=== PATIENT | male | born 1960 | race Caucasian/White ===

== ENCOUNTER 2022-12-12 07:31 | Outpatient (OUT) | payer BC, SELFPAY ==
[2022-12-12 08:07] LABS: Basophils Absolute Auto 0.1 10^3/uL (0.0-0.1); Eosinophils Absolute Auto 0.2 10^3/uL (0.0-0.7); Eosinophils Percent Auto 2.1 % (0.9-7.0); Hematocrit 45.9 % (42.0-54.0); Hemoglobin 15.1 g/dL (14.0-18.0); Immature Granulocytes Abs Auto 0.03 10^3/uL (0.00-0.03); Immature Granulocytes Pct Auto 0.4 % (0.0-0.5); Lymphocytes Absolute Auto 2.7 10^3/uL (1.2-3.8); Lymphocytes Percent Auto 33.7 % (20.5-60.0); Mean Corpuscular HGB Conc 32.9 g/dL (29.9-35.2); Mean Corpuscular Hemoglobin 30.6 pg (25.9-34.0); Mean Corpuscular Volume 93.1 fL (80.0-94.0); Mean Platelet Volume 8.9 fL (9.5-13.5); Monocytes Absolute Auto 0.6 10^3/uL (0.3-0.8); Monocytes Percent Auto 6.8 % (1.7-12.0); Neutrophils Absolute Auto 4.6 10^3/uL (1.4-6.5); Platelet Count 254 10^3/uL (150-450); Red Blood Count 4.93 10^6/uL (4.70-6.10); Red Cell Distribution Width 14.2 % (11.0-15.0); White Blood Count 8.1 10^3/uL (4.0-11.0)
[2022-12-12 08:31] LABS: Estimated Average Glucose 114 mg/dL; Glycohemoglobin A1C 5.6 % (4.5-6.2)
[2022-12-12 08:46] LABS: Alanine Aminotransferase 27 U/L (16-63); Albumin Globulin Ratio 1.1; Albumin Level 4.1 g/dL (3.4-5.0); Alkaline Phosphatase 50 U/L (46-116); Anion Gap 9.9; Aspartate Amino Transferase 15 U/L (15-37); BUN Creatinine Ratio 15.3; Bilirubin Direct 0.1 mg/dL (0.0-0.2); Bilirubin Total 0.4 mg/dL (0.2-1.0); Calcium 9.4 mg/dL (8.5-10.1); Carbon Dioxide 29.3 mmol/L (21.0-32.0); Chloride 105 mmol/L (98-107); Chol HDL Ratio 2.3; Cholesterol 197 mg/dL (<=200); Estimated GFR (African America >60 (>=60); Estimated GFR (Non-African Ame >60 (>=60); Globulin 3.6 g/dL; Glucose 110 mg/dL (74-106); HDL Cholesterol 87 mg/dL (40-60); Potassium 5.2 mmol/L (3.5-5.1); Sodium 139 mmol/L (136-145); Thyroid Stimulating Hormone 1.366 uIU/mL (0.358-3.740); Total Protein 7.7 g/dL (6.4-8.2); Triglycerides 51 mg/dL (<=150); VLDL CHOLESTEROL 10.2 mg/dL
[2022-12-12 09:53] LABS: Prostate Specific Antigen Scrn 1.48 ng/mL (<=4.00)
== END 2022-12-12 07:32 | disposition home or self-care (01) ==
LOC: LAB 07:35
PROVIDERS: PCP Family Medicine; Visit Provider Family Medicine
DX: Z00.00 Encounter for general adult medical examination without abnormal findings (principal); Z12.5 Encounter for screening for malignant neoplasm of prostate
CPT/HCPCS: 36415; 80048; 80061; 80076; 83036; 84443; 85025; G0103

== ENCOUNTER 2023-12-27 09:24 | Outpatient (OUT) | payer BC, SELFPAY ==
[2023-12-27 10:00] LABS: Basophils Absolute Auto 0.1 10^3/uL (0.0-0.1); Basophils Percent Auto 0.8 % (0.2-2.0); Eosinophils Absolute Auto 0.1 10^3/uL (0.0-0.7); Eosinophils Percent Auto 1.4 % (0.9-7.0); Hematocrit 45.5 % (42.0-54.0); Hemoglobin 14.9 g/dL (14.0-18.0); Immature Granulocytes Abs Auto 0.02 10^3/uL (0.00-0.03); Immature Granulocytes Pct Auto 0.3 % (0.0-0.5); Lymphocytes Absolute Auto 2.4 10^3/uL (1.2-3.8); Lymphocytes Percent Auto 31.3 % (20.5-60.0); Mean Corpuscular HGB Conc 32.7 g/dL (29.9-35.2); Mean Corpuscular Hemoglobin 31.4 pg (25.9-34.0); Mean Platelet Volume 9.2 fL (9.5-13.5); Monocytes Absolute Auto 0.6 10^3/uL (0.3-0.8); Monocytes Percent Auto 7.6 % (1.7-12.0); Neutrophils Absolute Auto 4.5 10^3/uL (1.4-6.5); Neutrophils Percent Auto 58.6 % (43.0-75.0); Platelet Count 248 10^3/uL (150-450); Red Blood Count 4.74 10^6/uL (4.70-6.10); Red Cell Distribution Width 14.2 % (11.0-15.0); White Blood Count 7.7 10^3/uL (4.0-11.0)
[2023-12-27 10:57] LABS: Alanine Aminotransferase 28 U/L (16-63); Albumin Globulin Ratio 1.3; Albumin Level 3.9 g/dL (3.4-5.0); Alkaline Phosphatase 53 U/L (46-116); Anion Gap 10.3; Aspartate Amino Transferase 16 U/L (15-37); BUN Creatinine Ratio 13.6; Bilirubin Direct 0.2 mg/dL (0.0-0.2); Bilirubin Total 0.7 mg/dL (0.2-1.0); Calcium 9.1 mg/dL (8.5-10.1); Carbon Dioxide 28.8 mmol/L (21.0-32.0); Chloride 104 mmol/L (98-107); Chol HDL Ratio 2.3; Cholesterol 201 mg/dL (<=200); Estimated GFR (African America >60 (>=60); Estimated GFR (Non-African Ame >60 (>=60); Glucose 96 mg/dL (74-106); HDL Cholesterol 87 mg/dL (40-60); Potassium 4.1 mmol/L (3.5-5.1); Sodium 139 mmol/L (136-145); Thyroid Stimulating Hormone 1.044 uIU/mL (0.358-3.740); Total Protein 6.9 g/dL (6.4-8.2); Triglycerides 50 mg/dL (<=150)
[2023-12-27 11:24] LABS: Estimated Average Glucose 105 mg/dL; Glycohemoglobin A1C 5.3 % (4.5-6.2)
== END 2023-12-27 09:25 | disposition home or self-care (01) ==
LOC: LAB 09:25
PROVIDERS: PCP Family Medicine; Visit Provider Family Medicine
DX: Z00.00 Encounter for general adult medical examination without abnormal findings (principal)
CPT/HCPCS: 36415; 80048; 80061; 80076; 83036; 84443; 85025; G0103

== ENCOUNTER 2024-12-18 10:13 | Outpatient (OUT) | payer BC, SELFPAY ==
--- OUTSIDE RECORDS SUMMARY | 2024-12-18 10:29 | XMS_ITS | CCD ---
Author Organization [facility] Care Team Providers Care Pole Tester Name Role Phone FARHEEN Friedman Attending Provider PENG, DR ADAM Rodriguez Attending Unavailable PENG, DR ADAM Rodriguez Admitting Unavailable PENG, DR ADAM Rodriguez Primary Care Unavailable PENG, DR ADAM Rodriguez Consulting Unavailable PENG, DR ADAM Rodriguez Admitting Unavailable PENG, DR ADAM Rodriguez Primary Care Unavailable PENG, DR ADAM Rodriguez Consulting Unavailable PENG, DR ADAM Rodriguez Attending Unavailable Sarah Mahajan Unavailable Lenora Mcclendon Unavailable ADAM KHOURY Attending Unavailable Sofia Jang NP Unavailable [phone] Adam Khoury MD Primary Care Provider [phone] Medications Current Medications Medication Drug Class(es) Dates Sig (Normalized) Sig (Original) [id number] actuat albuterol 0.09 mg/actuat metered dose inhaler (1 source) beta2-Adrenergic Agonist Start: 03-29-2023 take 1 puff(s) by inhalation every four hours as needed Albuterol Sulfate HFA 108 (90 Base) MCG/ACT 1 puff as needed Inhalation every 4 hrs for 30 days Mar, Active azithromycin 250 mg oral tablet (1 source) Macrolide Antimicrobial Start: 03-29-2023 Azithromycin 250 MG Take 2 tablets on first day then 1 tablet daily for 4 days Orally as directed for 5 Mar, Active methylPREDNISolone 4 mg oral tablet (1 source) Corticosteroid Start: 03-29-2023 Medrol 4 MG as directed Orally as directed for 6 days Mar, Active Completed/Discontinued Medications Medication Drug Class(es) Dates Sig (Normalized) Sig (Original) dexamethasone 1 mg/ml / neomycin 3.5 mg/ml / polymyxin b [id number] unt/ml ophthalmic suspension (2 sources) Aminoglycoside Antibacterial, Polymyxin-class Antibacterial, Corticosteroid Start: 11-22-2022 take 1 drop(s) into the eye(s) four times daily as needed Neomycin-Polymyx in-Dexameth [id number] 1 drop into affected eye Ophthalmic Four times a day for 5 days Nov, Not-Taking/PRN Ketorolac (6 sources) Nonsteroidal Anti-inflammatory Drug, Cyclooxygenase Inhibitor Start: 09-03-2017 Toradol per 15 mg Sep, 30 mg Start: 01-18-2016 Toradol per 15 mg Jan, 60 mg triamcinolone acetonide 40 mg/ml injectable suspension (5 sources) Corticosteroid Start: 11-22-2022 Kenalog-40 Nov, 60 mg Start: 09-03-2017 KENALOG - 10 m g Sep, 40 mg Problems Active Problems Problem Classification Problem Date Documented Date Episodic/Chronic Acute bronchitis (1 source) Acute bronchitis, unspecified Episodic Diverticulosis and diverticulitis (4 sources) Diverticular disease of colon; Translations: [Diverticulosis of large intestine without perforation or abscess without bleeding] Onset: 12-13-2023 12-13-2023 Chronic Other eye disorders (1 source) Other specified disorders of eye and adnexa Episodic Other screening for suspected conditions (not mental disorders or infectious disease) (1 source) Encounter for screening for malignant neoplasm of prostate; Translations: [ENC SCREEN MALIG NEOPLASM PROSTATE] Onset: 12-31-2021 Episodic Spondylosis; intervertebral disc disorders; other back problems (4 sources) Degeneration of lumbar intervertebral disc; Translations: [Other intervertebral disc degeneration, lumbar region] Onset: 12-13-2023 12-13-2023 Chronic Unclassified (3 sources) CONTACT W/AND (SUSP) EXPOS COVID-19; Translations: [CONTACT W/AND (SUSP) EXPOS COVID-19] Onset: 04-06-2021 Past or Other Problems Problem Classification Problem Date Documented Da te Episodic/Chronic Other non-traumatic joint disorders (1 source) Pain in right knee Onset: 10-20-2021 Resolved: 10-20-2021 Episodic Other non-traumatic joint disorders (1 source) Effusion, right knee Onset: 10-20-2021 Resolved: 10-20-2021 Episodic Other non-traumatic joint disorders (4 sources) Pain in right shoulder; Translations: [Pain in joint, shoulder region] Onset: 12-13-2023 12-13-2023 Episodic Spondylosis; intervertebral disc disorders; other back problems (10 sources) Acute back pain with sciatica; Translations: [Lumbago with sciatica, right side] Onset: 12-13-2023 12-13-2023 Episodic Unclassified (1 source) CONTACT W/AND (SUSP) EXPOS COVID-19; Translations: [CONTACT W/AND (SUSP) EXPOS COVID-19] Onset: 03-30-2021 Unclassified (1 source) Contact with and (suspected) exposure to covid-19 Z20.822 Results Test Name Value Interpretation Reference Range Facility ALL CBC WITH AUTO DIFFon BASOPHILS ABSOLUTE AUTO 0.1 [facility] Basophils/100 WBC (Bld) 0.8 % 0.2 - 2.0 % [facility] Eosinophils/100 WBC (Bld) 1.4 % 0.9 - 7.0 % [facility] Erythrocyte distribution width (RBC) [Ratio] 14.2 % 11.0 - 15.0 % [facility] Hematocrit (Bld) [Volume fraction] 45.5 % 42.0 - 54.0 % [facility] Hem[facility] (Bld) [Mass/Vol] 14.9 g/dL 14.0 - 18.0 g/dL [facility] IMMATURE GRANULOCYTES ABS AUTO 0.02 [facility] Immature granulocytes/100 WBC (Bld) 0.3 % 0.0 - 0.5 % [facility] Interpretation and review of laboratory results Abnormal [facility] LYMPHOCYTES ABSOLUTE AUTO 2.4 [facility] Lymphocytes/100 WBC (Bld) 31.3 % 20.5 - 60.0 % [facility] MCH (RBC) [Entitic mass] 31.4 pg 25.9 - 34.0 pg [facility] MCHC (RBC) [Mass/Vol] 32.7 g/dL 29.9 - 35.2 g/dL [facility] MCV (RBC) [Entitic vol] 96.0 fL High 80.0 - 94.0 fL [facility] MONOCYTES ABSOLUTE AUTO 0.6 [facility] Monocytes/100 WBC (Bld) 7.6 % 1.7 - 12.0 % [facility] NEUTROPHILS ABSOLUTE AUTO 4.5 [facility] Neutrophils/100 WBC (Bld) 58.6 % 43.0 - 75.0 % [facility] Platelet mean volume (Bld) [Entitic vol] 9.2 fL Low 9.5 - 13.5 fL [facility] EO # 0.1 [facility] PLT 248 [facility] RBC 4.74 [facility] WBC 7.7 [facility] COVID + FLU Quick Testingon 03-29-2023 SARS-CoV-2 (COVID-19) RNA HERLINDA+probe Ql (Unsp spec) Negative [facility] Search to Phone Other COVID + FLU Quick Testing Negative [employer] Other CBC AUTO DIFFon 12-29-2021 BASO # 0.1 103/ul Normal 0.0-0.1 [facility] Comment on above: Performed By: #### C BC #### [facility] [address] [place] [address] Dr. Wisam Oconnell Basophils/100 WBC (Bld) 0.7 % Normal 0.2-2.0 [facility] Comment on above: Performed By: #### C BC #### [facility] [address] [place] [address] Dr. Wisam Oconnell EO # 0.2 103/ul Normal 0.0-0.7 [facility] Comment on above: Performed By: #### C BC #### [facility] [address] [place] [address] Dr. Wisam Oconnell Eosinophils/100 WBC (Bld) 2.1 % Normal 0.9-7.0 [facility] Comment on above: Performed By: #### C BC #### [facility] [address] [place] [address] Dr. Wisam Oconnell Erythrocyte distribution width (RBC) [Ratio] 14.6 % Normal 11.0-15.0 [facility] Comment on above: Performed By: #### C BC #### [facility] [address] [place] [address] Dr. Wisam Oconnell Hematocrit (Bld) [Volume fraction] 46.9 % Normal 42.0-54.0 [facility] Comment on above: Performed By: #### C BC #### [facility] [address] [place] [address] Dr. Wisam Oconnell Hemoglobin (Bld) [Mass/Vol] 15.1 g/dL Normal 14.0-18.0 [facility] Comment on above: Performed By: #### C BC #### [facility] [address] [place] [address] Dr. Wisam Oconnell IG # 0.05 10e3/ul Critically high 0.00-0.03 [facility] Comment on above: Performed By: #### C BC #### [facility] [address] [place] [address] Dr. Wisam Oconnell IG % 0.5 % Normal 0.0-0.5 [facility] Comment on above: Performed By: #### C BC #### [facility] [address] [place] [address] Dr. Wisam Oconnell LYMPH # 2.7 103/ul Normal 1.2-3.8 [facility] Comment on above: Performed By: #### C BC #### [facility] [address] [place] [address] Dr. Wisam Oconnell Lymphocytes/100 WBC (Bld) 25.3 % Normal 20.5-60.0 [facility] Comment on above: Performed By: #### C BC #### [facility] [address] [place] [address] Dr. Wisam Oconnell MANUAL DIFF REQ NO Normal [facility] Comment on above: Performed By: #### C BC #### [facility] [address] [place] [address] Dr. Wisam Oconnell MCH (RBC) [Entitic mass] 30.9 pg Normal 25.9-34.0 [facility] Comment on above: Performed By: #### C BC #### [facility] [address] [place] [address] Dr. Wisam Oconnell MCHC (RBC) [Mass/Vol] 32.2 g/dL Normal 29.9-35.2 [facility] Comment on above: Performed By: #### C BC #### [facility] [address] [place] [address] Dr. Wisam Oconnell MCV (RBC) [Entitic vol] 95.9 fL Critically high 80.0-94.0 [facility] Comment on above: Performed By: #### C BC #### [facility] [address] [place] [address] Dr. Wisam Oconnell MONO # 0.6 103/ul Normal 0.3-0.8 [facility] Comment on above: Performed By: #### C BC #### [facility] [address] [place] [address] Dr. Wisam Oconnell Monocytes/100 WBC (Bld) 5.9 % Normal 1.7-12.0 [facility] Comment on above: Performed By: #### C BC #### [facility] [address] [place] [address] Dr. Wisam Oconnell NEUT # 7.0 103/ul Critically high 1.4-6.5 [facility] Comment on above: Performed By: #### C BC #### [facility] [address] [place] [address] Dr. Wisam Oconnell Neutrophils/100 WBC (Bld) 65.5 % Normal 43.0-75.0 [facility] Comment on above: Performed By: #### C BC #### [facility] [address] [place] [address] Dr. Wisam Oconnell Platelet mean volume (Bld) [Entitic vol] 9.4 fL Critically low 9.5-13.5 [facility] Comment on above: Performed By: #### C BC #### [facility] [address] [place] [address] Dr. Wisam Oconnell PLT 297 103/ul Normal 150-450 [facility] Comment on above: Performed By: #### C BC #### [facility] [address] [place] [address] Dr. Wisam Oconnell RBC 4.89 106/ul Normal 4.70-6.10 [facility] Comment on above: Performed By: #### C BC #### [facility] [address] [address] [address] Wisam Oconnell WBC 10.7 103/ul Normal 4.0-11.0 [facility] Comment on above: Performed By: #### C BC #### [facility] [address] [address] [address] Wisam Oconnell GLYCOHEMOGLOBIN A1Con 2021 ADA RECOMMENDATION SEE BELOW Normal [facility] Comment on above: Result Comment: ADA RECOMMENDED LIMIT 4.0 - 6.0 ADA THERAPEUTIC TARGET < 7.0 ACTION SUGGESTED > 7.0 Performed By: #### A 1C #### [facility] [address] [place] [address] Dr. Wisam Oconnell Glucose [Mass/Vol] 117 mg/dL Normal [facility] Comment on above: Performed By: #### A 1C #### [facility] [address] [place] [address] Dr. Wisam Oconnell HbA1c (Bld) [Mass fraction] 5.7 % Normal 4.5-6.2 [facility] Comment on above: Performed By: #### A 1C #### [facility] [address] [place] [address] Dr. Wisam Oconnell LIPID PROFILEon 12-29-2021 CHOL-HDL RATIO NORM SEE BELOW Normal [facility] Comment on above: Result Comment: 3.3 - 4.4 LOW RISK 4.4 - 7.1 AVERAGE RISK 7.1 - 11.0 MODERATE RISK >11.0 HIGH RISK Performed By: #### L IPID, LIVER, TSH, BMP #### [facility] [address] [address] [address] Wisam Oconnell Cholesterol [Mass/Vol] 231 mg/dL Critically high <=200 [facility] Comment on above: Performed By: #### L IPID, LIVER, TSH, BMP #### [facility] [address] [address] [address] Wisam Oconnell Cholesterol in HDL [Mass/Vol] 84 mg/dL Critically high 40-60 [facility] Comment on above: Performed By: #### L IPID, LIVER, TSH, BMP #### [facility] [address] [address] [address] Wisam Oconnell Cholesterol in LDL [Mass/Vol] 135.0 mg/dL Normal [facility] Comment on above: Performed By: #### L IPID, LIVER, TSH, BMP #### [facility] [address] [address] [address] Wisam Oconnell Cholesterol.total/Ch olesterol in HDL [Mass ratio] 2.8 {ratio} Normal [facility] Comment on above: Performed By: #### L IPID, LIVER, TSH, BMP #### [facility] [address] [address] [address] Wisam Oconnell HDL NORMAL > or = 60 mg/dl - LOW CARDIOVASCULAR RISK <40 mg/dl - HIGH CARDIOVASCULAR RISK Normal [facility] Comment on above: Performed By: #### L IPID, LIVER, TSH, BMP #### [facility] [address] [address] [address] Wisam Oconnell LDL CALC NORMAL SEE BELOW Normal [facility] Comment on above: Result Comment: <100 mg/dl OPTIMAL 100 - 129 mg/dl NEAR OR ABOVE OPTIMAL 130 - 159 mg/dl BORDERLINE HIGH 160 - 189 mg/dl HIGH >190 mg/dl VERY HIGH Performed By: #### L IPID, LIVER, TSH, BMP #### [facility] [address] [address] [address] Wisam Oconnell Triglyceride [Mass/Vol] 60 mg/dL Normal <=150 [facility] Comment on above: Performed By: #### L IPID, LIVER, TSH, BMP #### [facility] [address] [address] [address] Wisam Oconnell VLDL CALC 12.0 mg/dL Normal [facility] Comment on above: Performed By: #### L IPID, LIVER, TSH, BMP #### [facility] [address] [address] [address] Wisam Oconnell LIVER PROFILEon 12-29-2021 Albumin [Mass/Vol] 4.1 g/dL Normal 3.4-5.0 [facility] Comment on above: Performed By: #### L IPID, LIVER, TSH, BMP #### [facility] [address] [place] [address] Dr. Wisam Oconnell Albumin/Globulin [Mass ratio] 1.3 {ratio} Normal [facility] Comment on above: Performed By: #### L IPID, LIVER, TSH, BMP #### [facility] [address] [place] [address] Dr. Wisam Oconnell ALP [Catalytic activity/Vol] 54 U/L Normal 46-116 [facility] Comment on above: Performed By: #### L IPID, LIVER, TSH, BMP #### [facility] [address] [place] [address] Dr. Wisam Oconnell ALT [Catalytic activity/Vol] 29 U/L Normal 16-63 [facility] Comment on above: Performed By: #### L IPID, LIVER, TSH, BMP #### [facility] [address] [place] [address] Dr. Wisam Oconnell AST [Catalytic activity/Vol] 17 U/L Normal 15-37 [facility] Comment on above: Performed By: #### L IPID, LIVER, TSH, BMP #### [facility] [address] [place] [address] Dr. Wisam Oconnell BILI, CONJUGATED 0.1 mg/dL Normal 0.0-0.2 [facility] Comment on above: Performed By: #### L IPID, LIVER, TSH, BMP #### [facility] [address] [place] [address] Dr. Wisam Oconnell Bilirubin [Mass/Vol] 0.4 mg/dL Normal 0.2-1.0 [facility] Comment on above: Performed By: #### L IPID, LIVER, TSH, BMP #### [facility] [address] [place] [address] Dr. Wisam Oconnell Globulin (S) [Mass/Vol] 3.2 g/dL Normal [facility] Comment on above: Performed By: #### L IPID, LIVER, TSH, BMP #### [facility] [address] [place] [address] Dr. Wisam Oconnell Protein [Mass/Vol] 7.3 g/dL Normal 6.4-8.2 [facility] Comment on above: Performed By: #### L IPID, LIVER, TSH, BMP #### [facility] [address] [address] [address] Wisam Oconnell PROF CHEM 8 (BAS METB)on Anion gap [Moles/Vol] 12.3 mmol/L Normal [facility] Comment on above: Performed By: #### L IPID, LIVER, TSH, BMP #### [facility] [address] [address] [address] Wisam Oconnell Calcium [Mass/Vol] 9.0 mg/dL Normal 8.5-10.1 [facility] Comment on above: Performed By: #### L IPID, LIVER, TSH, BMP #### [facility] [address] [place] [address] Dr. Wisam Oconnell Chloride [Moles/Vol] 105 mmol/L Normal 98-107 [facility] Comment on above: Performed By: #### L IPID, LIVER, TSH, BMP #### [facility] [address] [place] [address] Dr. Wisam Oconnell CO2 [Moles/Vol] 27.6 mmol/L Normal 21.0-32.0 [facility] Comment on above: Performed By: #### L IPID, LIVER, TSH, BMP #### [facility] [address] [place] [address] Dr. Wisam Oconnell Creatinine [Mass/Vol] 1.17 mg/dL Normal 0.70-1.30 [facility] Comment on above: Performed By: #### L IPID, LIVER, TSH, BMP #### [facility] [address] [place] [address] Dr. Wisam Oconnell EGFR-AF [place] >60 Normal >=60 [facility] Comment on above: Performed By: #### L IPID, LIVER, TSH, BMP #### [facility] [address] [place] [address] Dr. Wisam Oconnell EGFR-NON AF [place] >60 Normal >=60 [facility] Comment on above: Performed By: #### L IPID, LIVER, TSH, BMP #### [facility] [address] [address] [address] Wisam Oconnell Glucose [Mass/Vol] 96 mg/dL Normal 74-106 [facility] Comment on above: Performed By: #### L IPID, LIVER, TSH, BMP #### [facility] [address] [address] [address] Wisam Oconnell Potassium [Moles/Vol] 4.9 mmol/L Normal 3.5-5.1 [facility] Comment on above: Performed By: #### L IPID, LIVER, TSH, BMP #### [facility] [address] [address] [address] Wisam Oconnell Sodium [Moles/Vol] 140 mmol/L Normal 136-145 [facility] Comment on above: Performed By: #### L IPID, LIVER, TSH, BMP #### [facility] [address] [address] [address] Wisam Oconnell Urea nitrogen [Mass/Vol] 19.0 mg/dL Critically high 7.0-18.0 [facility] Comment on above: Performed By: #### L IPID, LIVER, TSH, BMP #### [facility] [address] [address] [address] Wisam Oconnell Urea nitrogen/Creatinine [Mass ratio] 16.2 mg/mg Normal [facility] Comment on above: Performed By: #### L IPID, LIVER, TSH, BMP #### [facility] [address] [address] [address] Wisam Oconnell TSHon 12-29-2021 TSH 2.262 uIU/mL Normal 0.358-3.740 [facility] Comment on above: Performed By: #### L IPID, LIVER, TSH, BMP #### [facility] [address] [address] [address] Wisam Oconnell MRI Knee w/o Righton 022 MRI Knee w/o Right HISTORY: Medial and lateral pain COMPARISON: None available TECHNIQUE: Multiplanar multisequence MRI of the right knee was performed without contrast. FINDINGS: Quadriceps and patellar tendons are intact. No joint effusion. The anterior cruciate ligament and posterior cruciate ligament are intact. The medial collateral ligament, lateral collateral ligament, and popliteus myotendinous unit are intact. Complex tear of the body through posterior horn of the medial meniscus including flap tear component of the body with small meniscus flap displaced inferiorly along the periphery of the medial tibial plateau. Bone marrow edema within the medial tibial plateau subjacent to the body of the medial meniscus is likely reactive. The lateral meniscus is intact. There are a few tiny partial-thickness cartilage defect of the weightbearing medial femoral condyle as well as a few fully describe the fissures with small foci of subcortical bone marrow edema. Popliteal fossa structures are intact. No Frazier's cyst. IMPRESSION: Complex tear of the body through posterior horn of the medial meniscus. Report reported and signed by David Fang on 12/17/2021 1418 Normal [facility] [employer] XR knee RT 4V*on 10-20-2021 XR knee RT 4V* [facility] [employer] Other XR knee RT 4V* [facility] [employer] Other XR knee RT 4V* [address] [place] [address] [employer] Other XR knee RT 4V* [place] [address] No rt [employer] Other XR knee RT 4V* XRay Report [employer] Other XR knee RT 4V* Signed [employer] Other XR knee RT 4V* Patient: Lazaro Delong MR#: [id number] [employer] Other XR knee RT 4V* [address] [employer] Other XR knee RT 4V* : 1960 Acct:[id number] [employer] Other XR knee RT 4V* Age/Sex: 60 / M ADM Date: 10/20/21 [employer] Other XR knee RT 4V* Loc: XDUCLY [facility] [employer] Other XR knee RT 4V* Attending Dr: Melba ZHONG [employer] Other XR knee RT 4V* Copies to: FARHEEN Simmons [employer] Other XR knee RT 4V* Ordering Provider: FARHEEN Simmons [employer] Other XR knee RT 4V* Date of Service: 10/20/21 [employer] Other XR knee RT 4V* XR/XR knee RT 4V*: Acute pain of right knee [employer] Other XR knee RT 4V* RIGHT KNEE - 4 views [employer] Other XR knee RT 4V* CLINICAL HISTORY: Right suprapatellar and posterior knee pain for the past 2-3 days, without [employer] Other XR knee RT 4V* specific injury. [employer] Other XR knee RT 4V* COMPARISON: None [employer] Other XR knee RT 4V* AP, lateral and both oblique views were obtained. There is no evidence of fracture or [employer] Other XR knee RT 4V* dislocation. Minor medial tibiofemoral joint space narrowing is seen. There is mild marginal [employer] Other XR knee RT 4V* spurring at the posterior patella. A small to moderate size knee effusion is present. There is no [employer] Other XR knee RT 4V* focal soft tissue swelling. [employer] Other XR knee RT 4V* XR/XR knee RT 4V* [employer] Other XR knee RT 4V* IMPRESSION: [employer] Other XR knee RT 4V* MINOR DEGENERATIVE CHANGES. [employer] Other XR knee RT 4V* NO ACUTE BONY FINDINGS. [employer] Other XR knee RT 4V* JOINT EFFUSION. [employer] Other XR knee RT 4V* Impression dictated by: Charmaine London M.D.10/20/2021 10:39 AM [employer] Other XR knee RT 4V* Dictation Location: [place] [address] [employer] Other XR knee RT 4V* Transcribed By: MICHELLE 10/20/21 1039 [employer] Other XR knee RT 4V* Dictated By: Charmaine London MD 10/20/21 1037 [employer] Other XR knee RT 4V* Signed By: [employer] Other XR knee RT 4V* 10/20/21 1035 [employer] Other XR knee RT 4V* [facility] [place] [address] [place] [address] XRay Report Signed Patient: Lazaro Delong MR#: [id number] : 1960 Acct:[id number] Age/Sex: 60 / M ADM Date: 10/20/21 Loc: XDUCLY Room: Type: [facility] Attending Dr: Melba ZHONG Copies to: FARHEEN Simmons Ordering Provider: FARHEEN Simmons Date of Service: 10/20/21 XR/XR knee RT 4V*: Acute pain of right knee RIGHT KNEE - 4 views CLINICAL HISTORY: Right suprapatellar and posterior knee pain for the past 2-3 days, without specific injury. COMPARISON: None AP, lateral and both oblique views were obtained. There is no evidence of fracture or dislocation. Minor medial tibiofemoral joint space narrowing is seen. There is mild marginal spurring at the posterior patella. A small to moderate size knee effusion is present. There is no focal soft tissue swelling. XR/XR knee RT 4V* IMPRESSION: MINOR DEGENERATIVE CHANGES. NO ACUTE BONY FINDINGS. JOINT EFFUSION. Impression dictated by: Charmaine London M.D.10/20/2021 10:39 AM Dictation Location: [place] [address] Transcribed By: [facility] 10/20/21 1039 Dictated By: Charmaine London MD 10/20/21 1037 Signed By: 10/20/21 1039 [facility] Covid-19 PCR (CVDTB)on 03-04 SARS-CoV-2 (COVID-19) RNA HERLINDA+probe Ql (Unsp spec) Not detected Normal NOT DETECTED [facility] Comment on above: Result Comment: This test is not yet approved or cleared by the [place] FDA. When there are no FDA-approved or cleared tests available, and other criteria are met, FDA can make tests available under an emergency access mechanism called an Emergency Use Authorization (EUA). The EUA for this test is supported by the [place] of Health and Human Service's (HHS's) declaration that circumstances exist to justify the emergency use of in vitro diagnostics for the detection and/or diagnosis of the virus that causes COVID-19. This EUA will remain in effect (meaning this test can be used) for the duration of the COVID-19 declaration justifying emergency of IVDs, unless it is terminated or revoked by FDA (after which the test may no longer be used). When diagnostic testing is negative, the possibility of a false negative should be considered in the context of a patient's recent exposures and the presence of clinical signs and symptoms consistent with SARS-CoV-2. Performed By: #### C VDTB #### [facility] [address] [address] [address] Wisma Oconnell Vital Signs Date Time Vital Sign Value Performing Clinician Facility 12-13-2023 08:55-0400 Body height 180.3 cm Adam Khoury MD Work Phone: [facility] 12-13-2023 08:55-0400 Body mass index (BMI) [Ratio] 23.85 kg/m2 Adam Khoury MD Work Phone: [facility] 12-13-2023 08:55-0400 Body temperature 97.5 [degF] Adam Khoury MD Work Phone: [facility] 12-13-2023 08:55-0400 Body weight 77.56 kg Adam Khoury MD Work Phone: [facility] 12-13-2023 08:55-0400 Diastolic blood pressure 74 mm[Hg] Adam Khoury MD Work Phone: [facility] 12-13-2023 08:55-0400 Heart rate 70 /min Adam Khoury MD Work Phone: [facility] 12-13-2023 08:55-0400 Respiratory rate 18 /min Adam Khoury MD Work Phone: [facility] 12-13-2023 08:55-0400 SaO2% (BldA) [Mass fraction] 97 % Adam Khoury MD Work Phone: [facility] 12-13-2023 08:55-0400 Systolic blood pressure 136 mm[Hg] Adam Khoury MD Work Phone: [facility] 03-29-2023 10:00-0500 Body height 180.34 cm Lenora Hakan Other [facility] 03-29-2023 10:00-0500 Body mass index (BMI) [Ratio] 23.87 kg/m2 Lenora Hakan Other [facility] 03-29-2023 10:00-0500 Body temperature 98.2 [degF] Lenora Hakan Other [facility] 03-29-2023 10:00-0500 Body weight 77.66 kg Lenora Hakan Other [facility] 03-29-2023 10:00-0500 Diastolic blood pressure 70 mm[Hg] Lenora Hakan Other [facility] 03-29-2023 10:00-0500 Respiratory rate 18 /min Lenora Hakan Other [facility] 03-29-2023 10:00-0500 SaO2% (BldA) [Mass fraction] 95 % Lenora Hakan Other [facility] 03-29-2023 10:00-0500 Systolic blood pressure 120 mm[Hg] Lenora Hakan Other [facility] 11-22-2022 09:30-0400 Body height 180.34 cm Sarah Mahajan Other [facility] 11-22-2022 09:30-0400 Body mass index (BMI) [Ratio] 24.96 kg/m2 Sarah Mahajan Other [facility] 11-22-2022 09:30-0400 Body temperature 98.1 [degF] Sarah Mahajan Other [facility] 11-22-2022 09:30-0400 Body weight 81.19 kg Sarah Mahajan Other [facility] 11-22-2022 09:30-0400 Respiratory rate 18 /min Sarah Mahajan Other [facility] 11-22-2022 09:30-0400 SaO2% (BldA) [Mass fraction] 98 % Sarah Mahajan Other [facility] 10-20-2021 10:35-0400 Body height 180.34 cm Melba Friedman Other [facility] 10-20-2021 10:35-0400 Body mass index (BMI) [Ratio] 24.54 kg/m2 Melba Masonmond Other [facility] Other 10-20-2021 10:35-0400 Body temperature 97.7 [degF] Melba Masonmond Other [facility] 10-20-2021 10:35-0400 Body weight 79.83 kg Melba Masonmond Other [facility] Other 10-20-2021 10:35-0400 Diastolic blood pressure 88 mm[Hg] Melba Idalia Other [facility] 10-20-2021 10:35-0400 Respiratory rate 18 /min Melba Idalia Other [facility] Other 10-20-2021 10:35-0400 SaO2% (BldA) [Mass fraction] 99 % Melba Idalia Other [facility] 10-20-2021 10:35-0400 Systolic blood pressure 145 mm[Hg] Melba Idalia Other [facility] Other Encounters Encounter Date Encounter Type Care Provider Facility Start: 12-27-2023 End: 12-27-2023 Clinisync Result Encounter Adam Khoury MD Work Phone: [facility] Unsolicited Start: 12-27-2023 End: 12-27-2023 Clinisync Result Encounter Adam Khoury MD Work Phone: [facility] Unsolicited Start: 12-13-2023 End: 12-13-2023 Bamboo flowsheet Adam Khoury MD Work Phone: [facility] Start: 12-13-2023 End: 12-13-2023 Bamboo flowsheet Adam Khoury MD Work Phone: [facility] Start: 12-13-2023 End: 12-13-2023 ambulatory ADAM KHOURY Not Available Start: 12-13-2023 End: 12-13-2023 Patient encounter procedure Adam Khoury MD Work Phone: [facility] Work Phone: Start: 12-13-2023 End: 12-13-2023 Periodic preventive med est patient 40-64yrs Adam Khoury MD Work Phone: [facility] Comment on above: Annual physical exam (Primary Dx) Start: 03-29-2023 End: 03-29-2023 ambulatory Lenora Hakan Other [facility] Other Start: 03-29-2023 Office outpatient vi sit 15 minutes Lenora Hakan [facility] Start: 11-22-2022 End: 11-22-2022 ambulatory Sarah Mahajan Other [facility] Other Start: 11-22-2022 Office outpatient vi sit 15 minutes Sarah Mahajan [facility] Start: 12-31-2021 Encounter for genera l adult medical examination without abnormal findings DR ADAM KHOURY [facility] Start: 12-29-2021 End: 12-30-[address] ADAM KHOURY Facility: Start: 12-29-2021 End: 12-30-2021 Encounter for general adult medical examination without abnormal findings DR ADAM KHOURY Facility:[facility] Start: 10-20-2021 End: 10-20-2021 ambulatory Melba Friedman Other [facility] Other Start: 10-20-2021 Office outpatient vi sit 15 minutes Melba Friedman [facility] Start: 10-20-2021 End: 10-20-2021 Patient encounter procedure BLOOD TESTER FOWL-C Melba Friedman Work Phone: [facility] Start: 03-30-2021 End: 03-30-[address] ADAM KHOURY Facility:[facility] Procedures Date Procedure Procedure Detail Performing Clinician Start: 12-27-2023 ALL CBC WITH AUTO DIFF Adam Khoury MD Work Phone: Start: 12-29-[address] ADAM RAHMAN Comment on above: Performed By: #### P [facility] #### [facility] [address] [place] [address] Dr. Wisam Oconnell Start: 10-20-2021 X-ray of right knee BLOOD TESTER FOWL- C Melba Friedman Work Phone: Plan of Treatment Date Care Activity Detail Author Start: 12-14-2025 Screening for malign ant neoplasm of colon [facility] Start: 12-13-2023 End: 12-12-2024 Basic metabolic 1998 panel - Serum or Plasma Basic metabolic panel Lab Routine Annual physical exam Expected: 12/13/2023 (Approximate), Expires: 12/12/2024 [facility] Comment on above: Expected: 12/13/2023 (Approximate), Expires: 12/12/2024 Start: 12-13-2023 End: 12-12-2024 CBC W Auto Differential panel - Blood CBC and differential Lab Routine Annual physical exam Expected: 12/13/2023 (Approximate), Expires: 12/12/2024 [facility] Comment on above: Expected: 12/13/2023 (Approximate), Expires: 12/12/2024 Start: 12-13-2023 End: 12-12-2024 Hemoglobin A1c/Hemoglobin.total in Blood Hemoglobin A1c Lab Routine Annual physical exam Expected: 12/13/2023 (Approximate), Expires: 12/12/2024 [facility] Work Phone: Comment on above: Expected: 12/13/2023 (Approximate), Expires: 12/12/2024 Start: 12-13-2023 End: 12-12-2024 Hepatic function 2000 panel - Serum or Plasma Hepatic function panel Lab Routine Annual physical exam Expected: 12/13/2023 (Approximate), Expires: 12/12/2024 [facility] Comment on above: Expected: 12/13/2023 (Approximate), Expires: 12/12/2024 Start: 12-13-2023 End: 12-12-2024 Lipid 1996 panel - Serum or Plasma Lipid panel Lab Routine Annual physical exam Expected: 12/13/2023 (Approximate), Expires: 12/12/2024 [facility] Comment on above: Expected: 12/13/2023 (Approximate), Expires: 12/12/2024 Start: 12-13-2023 End: 12-12-2024 Prostate specific Ag [Mass/volume] in Serum or Plasma PSA Lab Routine Annual physical exam Expected: 12/13/2023 (Approximate), Expires: 12/12/2024 [facility] Comment on above: Expected: 12/13/2023 (Approximate), Expires: 12/12/2024 Start: 12-13-2023 End: 12-12-2024 Thyrotropin [Units/volume] in Serum or Plasma TSH Lab Routine Annual physical exam Expected: 12/13/2023 (Approximate), Expires: 12/12/2024 [facility] Comment on above: Expected: 12/13/2023 (Approximate), Expires: 12/12/2024 Start: 12-03-2023 Influenza vaccination Influenza Vacc ine (#1) [facility] Start: 1960 Screening for malign ant neoplasm of colon [facility] Immunizations Immunization Date Immunization Notes Care Provider Fa bryan 03-29-2022 influenza virus vacc ine, unspecified formulation Adam Khoury MD Work Phone: [facility] Payers Date Payer Category Payer Unknown BCBS BCBS [id number] [id number] 2023-Present [phone] [address] [place] [address] [id number] 1960 Unknown [id number] 1960 Unknown [id number] 1960 Unknown [id number] 1959 [address] [id number] [id number] Private Health Insurance [facility] [id number] Social History Date Type Detail Facility Tobacco smoking stat [facility] Unknown if ever smoked [facility] Work Phone: Start: 1960 Sex Assigned At Male [facility] Start: 12-13-2023 Sex Assigned At [facility] Other Start: 04-03-1980 Tobacco smoking status SDIS Smokes tobacco daily [facility] Start: 04-03-1980 History of tobacco use Cigarette Smoker [facility] Start: 12-13-2023 Cigarettes smoked current (pack per day) - Reported 1 [facility] Start: 12-13-2023 Tobacco use and exposure Smokeless tobacco non-user [facility] Start: 1960 Sex assigned at Not on file [facility] Healthcare Tobacco smoking stat [facility] Tobacco smoking consumption unknown [facility] History of Present illness Narrative 12-13-2023 Adam Khoury MD - 12/13/2023 9:35 AM EDTMmirian Khoury MD - 12/13/2023 8:30 AM EDT Note Date & Type Note Facility 12-13-2023 History of Presen t illness Narrative Associated Problem(s): Annual physical exam Due for labs. Discussed proper diet and regular aerobic exercise. Need aerobic exercise 5-6 days a week for 30 minutes at a time. Smaller portions and limit total calories. Cologuard normal in 2022. Tetanus every 10 years. Advised not to smoke. Discussed daily Aspirin therapy. Images from the original note were not included. Subjective Patient ID: Lazaro Delong is a 63 y.o. male who presents for Annual Exam (wellness). Presents for annual PE. Patient feels well today. Weight unchanged over the past year. Active at work and around house but no regular exercise. Tries to watch diet and eat healthy. Increased fruits and vegetables. Smaller portions and limits snacking. Tries to limit total daily calories. Due for labs. Cologuard normal last year. Review of Systems Constitutional: Negative for fatigue. Respiratory: Negative for cough, shortness of breath and wheezing. Cardiovascular: Negative for chest pain and palpitations. Gastrointestinal: Negative for abdominal pain, diarrhea, nausea and vomiting. Genitourinary: Negative for dysuria. Objective Physical Exam Constitutional: General: He is not in acute distress. Appearance: Normal appearance. HENT: Head: Normocephalic. Right Ear: Tympanic membrane and ear canal normal. Left Ear: Tympanic membrane and ear canal normal. Eyes: Extraocular Movements: Extraocular movements intact. Pupils: Pupils are equal, round, and reactive to light. Cardiovascular: Rate and Rhythm: Normal rate and regular rhythm. Heart sounds: No murmur heard. No friction rub. No gallop. Pulmonary: Breath sounds: Normal breath sounds. No wheezing, rhonchi or rales. Abdominal: General: Bowel sounds are normal. There is no distension. Palpations: Abdomen is soft. Tenderness: There is no abdominal tenderness. There is no guarding or rebound. Musculoskeletal: General: Normal range of motion. Left lower leg: No edema. Neurological: General: No focal deficit present. Mental Status: He is alert. Cranial Nerves: No cranial nerve deficit. Deep Tendon Reflexes: Reflexes normal. Assessment/Plan Problem List Items Addressed This Visit Annual physical exam - Primary Due for labs. Discussed proper diet and regular aerobic exercise. Need aerobic exercise 5-6 days a week for 30 minutes at a time. Smaller portions and limit total calories. Cologuard normal in 2022. Tetanus every 10 years. Advised not to smoke. Discussed daily Aspirin therapy. Relevant Orders Hemoglobin A1c Basic metabolic panel CBC and differential Hepatic function panel Lipid panel PSA TSH documented in this encounter [facility] Evaluation note 03-29-2023 Note Date & Type Note Facility 03-29-2023 Evaluation note Encounter Date Diagnosis Assessment Notes Mar, Contact with and (suspected) exposure to covid-19 (ICD-10 - Z20.822) Mar, Acute bronchitis, unspecified organism (ICD-10 - J20.9) Patient is a 62 yo male who presents with complaint of cough, headache, runny nose, chest congestion, dark yellow/green sputum with productive cough, fevers, chills, sweats, intermittent shortness of breath and wheezing. Denies nausea, vomiting, diarrhea, weakness, pain with inspiration or chest pain. Rhonchi and expiratory wheeze noted bilaterally on auscultation of the lungs. DDX includes covid, flu, bronchitis. Patient tested negative in office for covid, flu. Plan to discharge patient home with diagnosis of bronchitis of likely bacterial etiology. Patient is a daily smoker which increases the risk for pneumonia. Patient is being prescribed azithromycin (Z-Sherwin), Medrol dose pack and albuterol inhaler to take as prescribed. He is to have close follow up with his PCP and go to the ER if he develops chest pain, difficulty breathing, constant shortness of breath. [facility] Other Evaluation note 11-22-2022 Note Date & Type Note Facility 11-22-2022 Evaluation note Encounter Date Diagnosis Assessment Notes Nov, Eye swelling, right (ICD-10 - H57.89) Discussed diagnosis with patient today in office. Advised patient that it appears that he may have came into contact with contact irritant. Kenalog injection provided today in office. Will send in rx of Maxitrol drops to use as directed. Encouraged use of warm compresses to area. Follow up with eye doctor if no improvement in 24 hours. Immediate evaluation in ER for changes in vision, eye pain, increase in swelling, or if any new or concerning symptoms arise. Patient verbalizes understanding and is agreeable with treatment plan [facility] Other Evaluation note 10-20-2021 Note Date & Type Note Facility 10-20-2021 Evaluation note Encounter Date Diagnosis Assessment Notes Oct, Acute pain of right knee (ICD-10 - M25.561) Oct, Effusion, right knee (ICD-10 - M25.461) Knee effusion home care material was printed Wear the Saud wrap for comfort and compression. Ice and elevate your knee 2-3 times a day. Take Aleve, 2 tablets every morning and every evening with food for pain and swelling. You may take Tylenol as well for pain. Call Dr. Larkin's office today for an appointment for recheck as soon as possible. Go to the ER for worsening symptoms or concerns. Patient reports he has seen Dr. Larkin in the past and wishes to continue his care with Dr. Larkin [facility] Other Evaluation note Note Date & Type Note Facility Evaluation note [facility] Work Phone: Evaluation note Note Date & Type Note Facility Evaluation note Diagnosis Annual physical exam- Primary Routine general medical examination at a health care facility documented in this encounter [facility] History general Narrative - Reported Note Date & Type Note Facility History general Narrative - Reported Type Surgical History lower back( L4 & L5) 2013 Hospitalization History see above [facility] Other History general Narrative - Reported Note Date & Type Note Facility History general Narrative - Reported Type Surgical History lower back( L4 & L5) 2013 Surgical History meniscus tear in knee Hospitalization History see above [facility] Other Summary Purpose Family History No Family History Records FoundNo Family History Records FoundNo Family History Records FoundNo Family History Records Found Advance Directives No Advanced Directives Records FoundNo Advanced Directives Records FoundNo Advanced Directives Records FoundNo Advanced Directives Records Found Additional Source Comments Care Teams (unrecognized sec tion and content) Team Status: Inactive Member Role Status Dates Melba Friedman NP-C Attending Provider Active 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 Relationship Specialty Start Date End Date Sofia Jang NP [address] [facility] [address] [place] [address] PCP - [place] [employer] 09/01/22 Adam Khoury MD [address] [place] [phone] PCP - General Family Medicine 11/30/23 Pole Tester Relationship Specialty Start Date End Date Sofia Jang NP [address] [facility] [address] [place] [address] PCP - [place] [employer] 09/01/22 Adam Khoury MD [address] [place] [id number] PCP - General Family Medicine 11/30/23 Pole Tester Relationship Specialty Start Date End Date Sofia Jang NP [address] [facility] [address] [place] [address] PCP - [place] [employer] 09/01/22 Adam Khoury MD [address] [place] [id number] PCP - General Family Medicine 11/30/23 Goals (unrecognized section and content) Goals may be documented in a n alternate sectionNo InformationNo InformationNo Information REASON FOR VISIT (unrecogniz ed section and content) Reason Comments Annual Exam wellness (unrecognized sect ion and content) No Status Records FoundNo Status Records FoundNo Status Records FoundNo Status Records Found INFORMATION SOURCE (unrecogn ized section and content) DATE CREATED AUTHOR 10/27/2021 [facility] DATE CREATED AUTHOR AUTHOR'S ORGANIZ ATION 01/01/2022 [facility] DATE CREATED AUTHOR AUTHOR'S ORGANIZ ATION 01/04/2022 [facility] DATE CREATED AUTHOR AUTHOR'S ORGANIZ ATION 12/15/2023 [facility] EPIC FOR RECORDS PERTAINING TO PATIENTS WHO ARE OR HAVE BEEN ENROLLED IN A CHEMICAL DEPENDENCY/SUBSTANCEABUSE PROGRAM, SOME INFORMATION MAY BE OMITTED. This clinical summary was aggregated from multiple sources. Caution should be exercised in using it in the provision of clinical care. This summary normalizes information from multiple sources, and as a consequence, information in this document may materially change the coding, format and clinical context of patient data. In addition, data may be omitted in some cases. CLINICAL DECISIONS SHOULD BE BASED ON THE PRIMARY CLINICAL RECORDS. [facility] provides no warranty or guarantee of the accuracy or completeness of information in this document.
[2024-12-18 10:40] LABS: Hematocrit 42.1 % (42.0-54.0); Hemoglobin 14.3 g/dL (14.0-18.0); Immature Granulocytes Abs Auto 0.01 10^3/uL (0.00-0.03); Immature Granulocytes Pct Auto 0.1 % (0.0-0.5); Lymphocytes Absolute Auto 2.6 10^3/uL (1.2-3.8); Mean Corpuscular HGB Conc 34.0 g/dL (29.9-35.2); Mean Corpuscular Hemoglobin 31.8 pg (25.9-34.0); Mean Corpuscular Volume 93.6 fL (80.0-94.0); Platelet Count 280 10^3/uL (150-450); Red Blood Count 4.50 10^6/uL (4.70-6.10); White Blood Count 8.1 10^3/uL (4.0-11.0)
[2024-12-18 11:07] LABS: Alanine Aminotransferase 25 U/L (16-63); Albumin Globulin Ratio 1.1; Albumin Level 3.6 g/dL (3.4-5.0); Alkaline Phosphatase 73 U/L (46-116); Anion Gap 11.3; Aspartate Amino Transferase 16 U/L (15-37); Blood Urea Nitrogen 15.0 mg/dL (7.0-18.0); Calcium 8.8 mg/dL (8.5-10.1); Carbon Dioxide 28.1 mmol/L (21.0-32.0); Chloride 106 mmol/L (98-107); Cholesterol 176 mg/dL (<=200); Estimated GFR (African America >60 (>=60 mL/min/1.73m^2); Estimated GFR (Non-African Ame >60 (>=60 mL/min/1.73m^2); Globulin 3.4 g/dL; Glucose 99 mg/dL (74-106); HDL Cholesterol 70 mg/dL (40-60); Potassium 4.4 mmol/L (3.5-5.1); Sodium 141 mmol/L (136-145); Thyroid Stimulating Hormone 1.167 uIU/mL (0.358-3.740); Total Protein 7.0 g/dL (6.4-8.2); Triglycerides 31 mg/dL (<=150); VLDL CHOLESTEROL 6.2 mg/dL
== END 2024-12-18 10:14 | disposition home or self-care (01) ==
LOC: LAB 10:16
PROVIDERS: PCP Family Medicine; Visit Provider Family Medicine
DX: Z00.00 Encounter for general adult medical examination without abnormal findings (principal); Z12.5 Encounter for screening for malignant neoplasm of prostate
CPT/HCPCS: 36415; 80053; 80061; 83036; 84443; 85025; G0103